=== PATIENT | male | born 1975 | race Caucasian/White ===

== ENCOUNTER 2024-04-28 12:02 | Day surgery (SDC) | payer BC, OTHER ==
--- NOTE | 2024-04-28 08:10 | HP ---
HISTORY AND PHYSICAL HISTORY OF PRESENT ILLNESS: A 48-year-old who had rectal bleeding in the past year, bright blood. No prior colonoscopy. No change in bowel habits. PAST MEDICAL HISTORY: Wears corrective lenses, edentulous, had some hemorrhoid issues in the past, COPD in the past. PAST SURGERIES: Had an arm fracture in the past. HOME MEDICATIONS: Clonazepam, aspirin, rosuvastatin, carvedilol, lisinopril/hydrochlorothiazide. ALLERGIES: No known drug allergies. SOCIAL HISTORY: Former smoker. Frequently drinks. Had exposure to STIs in the past. FAMILY HISTORY: Great-great grandmother with colon problems, not sure if cancer or not. Family history of diabetes, heart disease, and hypertension. REVIEW OF SYSTEMS: Twelve systems reviewed. No chest pain or palpitations. Other systems negative or noncontributory as per preadmission questionnaire. PHYSICAL EXAMINATION: GENERAL: Height 6 feet 2 inches, BMI 23.75. No acute distress. HEENT: Sclerae nonicteric. NECK: No JVD. CARDIOVASCULAR: Regular rate and rhythm. CHEST: Equal excursion, nonlabored breathing. ABDOMEN: Soft. EXTREMITIES: No cyanosis or edema. NEUROLOGIC: Alert and oriented, moving extremities symmetrically. PSYCHIATRIC: Appropriate mood and affect. SKIN: Dry. RECTAL: Deferred until time of endoscopy exam. IMPRESSION: Rectal bleeding, needs colonoscopy as well as interested in possible consideration of hemorrhoid banding if indicated. Risks include but not limited to bleeding or infection, risk of bowel injury possibly requiring open procedure, risk of incomplete exam possibly requiring barium enema or barium swallow, risk of missed or nondiagnosis with possible need for other procedures or referrals, risk of bowel prep but not limited to, risk of progression of hemorrhoid disease possibly requiring other studies or procedures, general risk of anesthesia or sedation. Otherwise, continue medical management of hypertension, COPD, and anxiety. We will proceed with outpatient colonoscopy and possible internal hemorrhoid banding as out an outpatient under MAC anesthesia.
[2024-04-28] MEDS ORDERED: Lactated Ringers 1,000 ML IV ONE ×2 (12:22→14:04)
[2024-04-28] MEDS: Lactated Ringers 1,000 ML IV SCH (12:26)
[2024-04-28 12:44] VITALS: RESP 16
[2024-04-28] MEDS ORDERED: Xylocaine-Mpf 2% 5 Ml Vial ONE (13:40)
[2024-04-28] MEDS ORDERED: DIPRIVAN 200 MG/20 ML IV ONE ×3 (13:41→14:02)
[2024-04-28] MEDS ORDERED: Versed 2 MG/2 ML Injection ONE (13:42)
[2024-04-28] MEDS ORDERED: SUBLIMAZE 100 MCG/2 ML ONE (13:43)
[2024-04-28 14:39] VITALS: O2SAT 99
[2024-04-28 14:50] VITALS: BP 137/93; PULSE 70
[2024-04-28 14:57] VITALS: TEMP 97.6
--- NOTE | 2024-04-29 10:58 | OP ---
SURGERY DATE/TIME: 04/28/2024 2504 - 1241 PREOPERATIVE DIAGNOSES: 1) History of rectal bleed. 2) History of some internal hemorrhoids. POSTOPERATIVE DIAGNOSES: 1) ASA class 3. 2) Colon polyps. 3) Few small diverticula. 4) Grade 2 to 3 internal and external hemorrhoids. PROCEDURES: 1) Colonoscopy to the cecum. 2) Hot biopsy piecemeal polypectomy transverse colon polyp. 3) Hot biopsy polypectomy of sigmoid colon polyp. 4) Hot snare polypectomy of sigmoid colon polyps x2. 5) Internal hemorrhoid banding x3 columns. SURGEON: Dillan Fan MD. ANESTHESIA: MAC. ESTIMATED BLOOD LOSS: Minimal. INDICATIONS: As noted above. Risks and benefits explained in detail and consent obtained. DESCRIPTION OF PROCEDURE AND FINDINGS: The patient was taken to the endoscopy room. MAC anesthesia was induced. After official time-out, no disagreement in planned procedure, digital rectal exam revealed some internal and external hemorrhoids. Videocolonoscope inserted and passed up through the slightly tortuous sigmoid, descending, transverse, ascending colon around to the cecum. Appendiceal orifice and valve were well visualized and photodocumented. On withdrawal of the scope, there was a 3 mm polyp that was removed with hot biopsy piecemeal polypectomy in the transverse colon. Good hemostasis was noted. Scope was pulled back. He had a few tiny scattered diverticula in the left colon and 2 polyps in the sigmoid colon about 3 to 3.5 mm, removed with hot snare polypectomy, few bursts of cautery and hot snare. Another smaller 2 mm polyp in the sigmoid was removed with hot biopsy polypectomy. Good hemostasis was noted. The scope was pulled back into the rectum and retroflexed. He had some internal hemorrhoids. The scope was withdrawn. Withdrawal time would have been around 10 minutes or so, at least. At this point, he remained under MAC anesthesia. Retractor was carefully inserted. It was felt these grade 2 to 3 internal and external hemorrhoids warranted banding. Bands were placed on the top edge of the left lateral hemorrhoid column with good tuft of tissue noted in the band on the top edge of the hemorrhoid. This was repeated on the right posterior column with a good tuft of tissue in the band on the top edge of the internal hemorrhoid and then again in the right anterior position, so right anterior, right posterior, and left lateral bands were placed on those columns. Patient tolerated the procedure well. Findings were discussed with family in the waiting area.
== END 2024-04-28 14:57 | disposition home or self-care (01) ==
LOC: SDC 12:02
PROVIDERS: ATTEND Surgery
DX: Z87.19 Personal history of other diseases of the digestive system (principal); K63.5 Polyp of colon; K57.30 Diverticulosis of large intestine without perforation or abscess without bleeding; K64.4 Residual hemorrhoidal skin tags; K64.8 Other hemorrhoids
CPT/HCPCS: J2250; J2704; J3010